=== PATIENT | male | born 1950 | race Caucasian/White ===

== ENCOUNTER 2016-11-26 06:02 | Inpatient (IN) ==
[2016-11-20 15:36] LABS: Appearance,Urine CLEAR; Bacteria,Urine 0 /hpf (0); Bilirubin,Urine NEG (NEG); Color,Urine YELLOW; Glucose,Urine (UA) NEGATIVE (NEG); Leukocyte Esterase,Urine NEG /uL (NEG); Mucus,Urine FEW /hpf (0); Nitrate,Urine NEG (NEG); Protein,Urine 100 mg/dL (NEG); Specific Gravity,Urine 1.017 (1.000-1.035); Urine Blood NEG mg/dL (<0.03); Urine RBC < 1 /hpf (0-1); Urine Squamous Epithelial Cell 0 /hpf (0-4); Urine WBC < 1 /hpf (0-4); Urobilinogen,Urine NEG (NEG)
[2016-11-20 17:31] LABS: Basophils # (Auto) 0.1 K/mcL (0.0-0.3); Basophils % (Auto) 0.6 % (0.0-2.0); Eosinophils # (Auto) 0.3 K/mcL (0.0-0.7); Eosinophils % (Auto) 3.3 % (0.0-7.0); Granulocytes % (Auto) 61.6 % (38.0-78.0); Lymphocytes # (Auto) 2.3 K/mcL (1.5-4.8); Lymphocytes % (Auto) 26.7 % (15.5-49.0); Mean Cell Volume 89.6 fL (80.0-100.0); Mean Corpuscular HGB Conc 32.8 g/dL (31.0-36.0); Mean Corpuscular Hemoglobin 29.4 pg (26.0-34.0); Monocytes # (Auto) 0.7 K/mcL (0.1-0.9); Monocytes % (Auto) 7.8 % (1.0-9.0); Platelet Count 275 K/mcL (140-440); RBC 5.34 M/mcL (4.50-5.90); Red Cell Distribution Width 13.9 % (11.5-14.5)
[2016-11-20 18:06] LABS: Blood Urea Nitrogen 21 mg/dl (8-23)
[~2016-11-26 06:02] MED LIST: ACETAMINOPHEN 500 MG TABLET PO SCH; CELECOXIB 200 MG CAPSULE PO SCH; KETOROLAC 30 MG, ROPIVACAINE HCL/PF 49.5 ML, EPINEPHrine 0.5 MG, 0.9 % SODIUM CHLORIDE ... IJ ONE; PREGABALIN 150 MG CAPSULE PO SCH; ceFAZolin 1 GM VIAL IV SCH; oxyCODONE 10 MG TAB.ER.12H PO SCH
[2016-11-26] MEDS ORDERED: LIDOCAINE HCL/PF 100 MG/5 ML SYRINGE IV ONE (08:20)
[2016-11-26] MEDS ORDERED: ROPIVACAINE HCL/PF 30 ML VIAL IJ ONE (08:20)
[2016-11-26] MEDS ORDERED: DEXAMETHASONE 10 MG/ML VIAL IV ONE (08:20)
[2016-11-26] MEDS ORDERED: TRANEXAMIC ACID 1,000 MG/10 ML VIAL IV ONE (08:20)
[2016-11-26] MEDS ORDERED: PROPOFOL 200 MG/20 ML VIAL IV ONE (08:20)
[2016-11-26] MEDS ORDERED: ONDANSETRON 4 MG/2 ML VIAL IV ONE (08:20)
[2016-11-26] MEDS ORDERED: MIDAZOLAM 5 MG/5 ML VIAL IV ONE (08:20)
[2016-11-26] MEDS ORDERED: fentaNYL 100 MCG/2 ML VIAL IV PRN (09:08)
[2016-11-26] MEDS ORDERED: MEPERIDINE 25 MG/ML SYRINGE IV PRN (09:08)
[2016-11-26] MEDS ORDERED: METHOCARBAMOL 1,000 MG/10 ML VIAL IV PRN (09:08)
[2016-11-26] MEDS ORDERED: FLUMAZENIL 0.1 MG/ML ML IV PRN (09:08)
[2016-11-26] MEDS ORDERED: PROMETHAZINE 25 MG/ML VIAL IV PRN (09:08)
[2016-11-26] MEDS ORDERED: NALOXONE HCL 0.4 MG/ML VIAL IV PRN (09:08)
[2016-11-26] MEDS ORDERED: HYDROmorphone 2 MG/ML SYRINGE IV PRN ×2 (09:08→11:12)
[2016-11-26] MEDS ORDERED: LACTATED RINGERS 250 ML IV PRN (09:08)
[2016-11-26] MEDS ORDERED: ONDANSETRON 4 MG/2 ML VIAL IV PRN ×2 (09:08→09:41)
[2016-11-26] MEDS ORDERED: BENZOCAINE/MENTHOL 1 LOZENGE PO PRN ×2 (09:08→09:41)
[2016-11-26] MEDS ORDERED: IPRATROPIUM/ALBUTEROL 3 ML AMPUL.NEB NEB PRN (09:08)
[2016-11-26] MEDS ORDERED: diphenhydrAMINE 50 MG/ML VIAL IV PRN (09:08)
[2016-11-26] MEDS ORDERED: LACTATED RINGERS 1,000 ML IV SCH (09:15)
[2016-11-26] MEDS ORDERED: ACETAMINOPHEN 325 MG TABLET PO PRN (09:41)
[2016-11-26] MEDS ORDERED: FLEETS ADULT ENEMA PR PRN (09:41)
[2016-11-26] MEDS ORDERED: MAGNESIUM HYDROXIDE 30 ML ORAL.SUSP PO PRN (09:41)
[2016-11-26] MEDS ORDERED: TRANEXAMIC ACID 1,000 MG/10 ML VIAL IV SCH (09:41)
[2016-11-26] MEDS ORDERED: POLYETHYLENE GLYCOL 3350 17 GM PACKET PO PRN (09:41)
[2016-11-26] MEDS ORDERED: BISACODYL 10 MG SUPP.RECT PR PRN (09:41)
[2016-11-26] MEDS ORDERED: NAPROXEN 500 MG TABLET PO PRN (09:44)
[2016-11-26] MEDS ORDERED: GENTAMICIN SULFATE 800 MG/20 ML VIAL IR ONE (10:10)
--- NOTE | 2016-11-26 10:56 | XRay Report ---
HISTORY: Reason for Exam:Post-Op Total Knee FINDINGS: There is a well positioned total knee prosthesis. No fracture or dislocation are present. There are calcified plaques in the distal superficial femoral artery. IMPRESSION: Well-positioned knee prosthesis Interpreted and Authenticated by: Benito Chavez 11/26/16
--- NOTE | 2016-11-26 11:12 | Operative Note ---
DATE OF OPERATION: 11/26/2016 PREOPERATIVE DIAGNOSIS: Left knee degenerative arthritis with varus deformity. POSTOPERATIVE DIAGNOSIS: Left knee degenerative arthritis with varus deformity. PROCEDURE: Left total knee arthroplasty. SURGEON: Manohar Cueva MD. WAXER TENDER: Roman Yepez PA-C. ANESTHESIA: General LMA anesthesia. COMPLICATIONS: None. IMPLANTS PLACED: A size 6 femur, size 6 tibial baseplate, cemented both. These were cruciate-retained design with a 9 mm poly. A 33 mm patellar button was placed. DESCRIPTION OF PROCEDURE: The patient was brought to the operating room and put to sleep with general LMA anesthesia. Once asleep, the patient had the left leg sterilely prepped and draped in the usual sterile fashion. Once this was done and the operative site confirmed, preop antibiotics given. Tranexamic acid was confirmed. Once this was done, we then made a midline incision, covering the skin with Ioban. A mid vastus approach was performed finding severe arthritis throughout the joint, both patellofemoral, medial and lateral with severe arthritis intact ACL and PCL. At this point, released the remnants of the ACL, removed the remnants of the anterior meniscus. We then placed intramedullary guide holes into the femur and tibia. We made our distal femoral cut at 9 mm because of his flexion contracture. We then made our anterior and posterior chamfer cuts after sizing the femur to a size 6. The tibia was then prepared. We then cut this to a depth of 9 mm below the least involved compartment which was laterally. We then irrigated thoroughly and removed osteophytes posteriorly. Once this was done, we then trialed the size 6 femur and size 6 tibial baseplate, 9 poly. This seemed to fit very nicely, balanced nicely with 1 mm play bilaterally. We then measured the patella. It measured 27 mm thickness. This was cut to approximately 18. We placed a 33 mm patellar button, and this was drilled into place. We trialed the components. Everything fit very nicely, both flexion and extension. We did a small release of the medial collateral ligament to perfectly balance the knee. We then cemented into place a size 6 femur and size 6 tibial baseplate. A 9 mm poly was inserted and a 33 mm patellar button. Excess cement was removed. We kept the knee at 45 degrees until drying of the cement was complete. We then deflated the tourniquet and controlled bleeding with the Bovie. We closed the capsule after a second inspection. We did use a CarboJet to prepare the bone. We did use a cement gun for the cement technique, all of which seemed to work very well. We then closed the capsule with #2 FiberWire and oversewed with a double-armed #1 Maxon with an interlocking stitch. The patient tolerated this well. We closed the skin with 2-0 Vicryl and adhesive closure. The patient tolerated this well. NAYA:[email or web address] Job ID: [id number] Doc ID: [id number] Manohar Cueva MD
[2016-11-26] MEDS: KETOROLAC 15 MG/ML VIAL IV SCH ×3 (13:23→23:26)
[2016-11-26] MEDS: 0.45 % SODIUM CHLORIDE 1,000 ML IV SCH ×3 (13:44→22:00)
[2016-11-26] MEDS: 0.9 % SODIUM CHLORIDE 10 ML SYRINGE IV SCH ×2 (13:52→21:50)
[2016-11-26] MEDS: HYDROcodone/APAP 10/325MG TABLET PO PRN ×3 (13:53→23:26)
[2016-11-26] MEDS ORDERED: DEXTROSE 50% 50 ML VIAL IV PRN (15:36)
[2016-11-26] MEDS: ceFAZolin 1 GM VIAL IV SCH ×2 (16:51→23:26)
[2016-11-26] MEDS: INSULIN LISPRO 1 UNIT/0.01 ML UNIT SQ SCH ×2 (17:17→21:02)
[2016-11-26] MEDS: metFORMIN 500 MG TABLET PO SCH (17:18)
[2016-11-26] MEDS: glipiZIDE 5 MG TABLET PO SCH (17:21)
[2016-11-26] MEDS ORDERED: TEMAZEPAM 15 MG CAPSULE PO PRN (21:00)
[2016-11-26] MEDS: SENNOSIDES 1 TABLET PO SCH (21:01)
[2016-11-26] MEDS: DOCUSATE SODIUM 100 MG CAPSULE PO SCH (21:01)
[2016-11-26] MEDS: ASPIRIN 325 MG ENTERIC COATED TABLET PO SCH (21:01)
[2016-11-27] MEDS: 0.45 % SODIUM CHLORIDE 1,000 ML IV SCH ×3 (01:40→20:26)
[2016-11-27] MEDS: HYDROcodone/APAP 10/325MG TABLET PO PRN ×5 (05:39→21:44)
[2016-11-27] MEDS: KETOROLAC 15 MG/ML VIAL IV SCH ×3 (05:40→17:26)
[2016-11-27] MEDS: 0.9 % SODIUM CHLORIDE 10 ML SYRINGE IV SCH ×3 (05:41→21:57)
[2016-11-27] MEDS: INSULIN LISPRO 1 UNIT/0.01 ML UNIT SQ SCH ×4 (07:02→21:44)
--- NOTE | 2016-11-27 07:26 | Orthopedic Progress Note ---
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 Chief Complaint: [Pt is stable this morning on post operative day 1 without any significant concerns or complaints. Patients vital signs have remained stable. Patients dressing is dry and exhibits a grossly intact neurovascular and neuromotor exam. Patients 10 point ROS is otherwise negative. ] Objective Vital signs: Vital Signs Temp Pulse Pulse Pulse Resp BP Pulse Ox 11/27/16 07:12 97.4 F L 83 16 144/71 95 11/27/16 05:38 16 94 11/27/16 04:00 97.4 F L 92 H 24 133/54 91 11/26/16 23:52 97.8 F 96 H 24 136/82 91 11/26/16 22:14 95 11/26/16 22:13 92 H 95 11/26/16 21:30 92 11/26/16 19:06 98.2 F 98 H 24 128/70 96 11/26/16 17:33 92 11/26/16 17:00 92 11/26/16 15:56 97.8 F 97 H 16 120/71 94 11/26/16 14:50 97.3 F L 60 15 140/87 98 11/26/16 14:25 97.6 F 99 H 16 133/76 94 11/26/16 13:41 90 11/26/16 13:25 91 H 16 155/78 91 11/26/16 12:55 89 16 160/84 94 11/26/16 12:25 90 16 144/75 94 11/26/16 12:10 89 16 175/73 96 11/26/16 11:55 97.5 F L 80 16 149/75 97 11/26/16 11:40 97.0 F L 82 14 151/80 91 11/26/16 11:16 97 F L 80 17 153/66 91 11/26/16 11:15 92 H 18 93 11/26/16 11:01 78 90 16 163/64 90 11/26/16 10:46 72 14 134/73 96 11/26/16 10:31 71 14 126/58 93 11/26/16 10:26 77 14 122/64 93 11/26/16 10:21 70 15 137/69 93 11/26/16 10:16 73 19 122/62 96 11/26/16 10:11 76 11 L 129/88 92 11/26/16 10:06 70 14 124/59 90 11/26/16 10:01 97.2 F L 77 13 121/58 92 Intake and Output 11/26/16 11/27/16 11/27/16 21:59 05:59 13:59 Intake Total 2180 / 2180 100 / 100 Output Total 325 / 325 Balance 2179 / 2179 -225 / -225 Intake: IV 1000 / 1000 Sodium Chloride 0.45% 1, 1000 / 1000 000 ml @ 125 mls/hr IV . Q8H PIOTR Rx#:[id number] Oral 1180 / 1180 100 / 100 Output: Void Amount 325 / 325 # of times incontinent of 1 / 1 urine Other: Meal Dinner Percent of Meal Consumed 100% Feeding Ability Independent # Voids 1 Weight 327 lb Intake & Output: Intake & Output 11/26/16 11/27/16 11/27/16 21:59 05:59 13:59 Intake Total 2180 / 2180 100 / 100 Output Total 325 / 325 Balance 2179 / 2179 -225 / -225 Weight 327 lb Intake: IV 1000 / 1000 Sodium Chloride 0.45% 1, 1000 / 1000 000 ml @ 125 mls/hr IV . Q8H PIOTR Rx#:[id number] Oral 1180 / 1180 100 / 100 Output: Void Amount 325 / 325 # of times incontinent of 1 / 1 urine Other: Meal Dinner Percent of Meal Consumed 100% Feeding Ability Independent # Voids 1 Incision: Yes healing Incision clean and dry: Yes Dressing: Yes clean, Yes dry Weight bearing status: full Neurological exam IM: Yes motor sensory intact, Yes neurovascular intact Extremities exam IM: Yes Foot pink and warm, Yes neurovascular intact - Labs CBC & BMP: 11/27/16 04:15 11/20/16 14:45 Labs: 11/27/16 11/20/16 04:15 14:45 Hgb 15.7 Hct 40.4 L 47.9 Assessment and Plan (1) Hx of total knee arthroplasty Patient has been educated regarding wound care and dressings, follow up recommendations, and medication use. We will f/u with the patient within 2-3 weeks for wound check. Status: Acute
--- NOTE | 2016-11-27 07:28 | Discharge Summary ---
Ortho Discharge - TKA - Patient Instructions Diet: Regular Diet Activity: activity as tolerated, weight bearing as tolerated Total Knee Protocol: For Total Knee: Start ROM MINESH with stationary bike or rocking chair. Work on gaining full extension of knee. Posterior dislocation precautions provided. Hip abductor strengthening and gait training instructions provided. Apply Cryocuff as instructed. Dressing Care: May shower in 2 days - Problem Maintenance (1) Hx of total knee arthroplasty Status: Acute - Follow Up Plan Follow Up Appointments: Roman Yepez PA-C [Physician Fishing Accessories Maker] - 12/13/16 1:50 pm Disposition: Home, Self-Care Prognosis: Good Rehab Potential: Good I certify that the patient requires SNF services: No Overall status at discharge: patient is progressing back to baseline - Orders For Discharge Prescriptions: Aspirin [Ecotrin] 325 mg PO BID #60 tab.ec Docusate Sodium [Colace] 100 mg PO BID #60 capsule HYDROcodone/APAP 10/325MG [[place] 10/325Mg] 1 - 2 tab PO Q4HP PRN #75 tablet PRN Reason: Pain
[2016-11-27] MEDS: HYDROCHLOROTHIAZIDE 12.5 MG CAPSULE PO SCH (08:29)
[2016-11-27] MEDS: LISINOPRIL 20 MG TABLET PO SCH (08:29)
[2016-11-27] MEDS: glipiZIDE 5 MG TABLET PO SCH ×2 (08:29→16:53)
[2016-11-27] MEDS: DOCUSATE SODIUM 100 MG CAPSULE PO SCH ×2 (08:29→20:20)
[2016-11-27] MEDS: amLODIPine 10 MG TABLET PO SCH (08:29)
[2016-11-27] MEDS: SPIRONOLACTONE 25 MG TABLET PO SCH (08:29)
[2016-11-27] MEDS: ASPIRIN 325 MG ENTERIC COATED TABLET PO SCH ×2 (08:29→20:20)
[2016-11-27] MEDS: ATORVASTATIN 40 MG TABLET PO SCH (08:29)
[2016-11-27] MEDS: metFORMIN 500 MG TABLET PO SCH ×2 (08:29→16:53)
[2016-11-27] MEDS: MULTIVIT,THER IRON,CA,FA & MIN 1 TABLET PO SCH (08:29)
[2016-11-27] MEDS: SENNOSIDES 1 TABLET PO SCH (20:20)
[2016-11-28] MEDS: HYDROcodone/APAP 10/325MG TABLET PO PRN ×6 (01:24→19:13)
[2016-11-28] MEDS: 0.45 % SODIUM CHLORIDE 1,000 ML IV SCH ×3 (02:15→16:23)
[2016-11-28] MEDS: KETOROLAC 15 MG/ML VIAL IV SCH ×2 (05:08)
[2016-11-28] MEDS: 0.9 % SODIUM CHLORIDE 10 ML SYRINGE IV SCH ×3 (05:17→21:57)
[2016-11-28] MEDS: INSULIN LISPRO 1 UNIT/0.01 ML UNIT SQ SCH ×4 (07:02→21:55)
--- NOTE | 2016-11-28 07:04 | Orthopedic Progress Note ---
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 Chief Complaint: [minimal pain and he used his mask last hs and sat at 96 doing well] Objective Vital signs: Vital Signs Temp Pulse Pulse Resp BP BP Pulse Ox 11/28/16 03:46 97.6 F 75 20 119/64 97 11/27/16 23:41 97.6 F 75 20 128/72 96 11/27/16 23:23 76 96 11/27/16 20:00 97.7 F 72 20 95/54 93 11/27/16 16:00 98.2 F 76 18 114/61 93 11/27/16 11:00 97.9 F 81 18 110/63 96 11/27/16 08:00 93 11/27/16 07:12 97.4 F L 83 16 144/71 95 Intake and Output 11/27/16 11/28/16 11/28/16 21:59 05:59 13:59 Intake Total 1200 / 1200 100 / 100 Balance 1200 / 1200 100 / 100 Intake: Oral 1200 / 1200 100 / 100 Other: Meal Lunch Percent of Meal Consumed 100% Weight 327 lb 8 oz Intake & Output: Intake & Output 11/27/16 11/28/16 11/28/16 21:59 05:59 13:59 Intake Total 1200 / 1200 100 / 100 Balance 1200 / 1200 100 / 100 Weight 327 lb 8 oz Intake: Oral 1200 / 1200 100 / 100 Other: Meal Lunch Percent of Meal Consumed 100% Incision: Yes healing Incision clean and dry: Yes Dressing: Yes clean Weight bearing status: full Neurological exam IM: Yes altered, Yes oriented X3, Yes neurovascular intact Extremities exam IM: Yes normal inspection, Yes Foot pink and warm, Yes neurovascular intact (doing well plan dc to snf in am) - Labs CBC & BMP: 11/27/16 04:15 11/20/16 14:45 Labs: 11/27/16 11/20/16 04:15 14:45 Hgb 15.7 Hct 40.4 L 47.9
[2016-11-28] MEDS: ASPIRIN 325 MG ENTERIC COATED TABLET PO SCH ×2 (08:44→21:54)
[2016-11-28] MEDS: SPIRONOLACTONE 25 MG TABLET PO SCH (08:44)
[2016-11-28] MEDS: amLODIPine 10 MG TABLET PO SCH (08:45)
[2016-11-28] MEDS: glipiZIDE 5 MG TABLET PO SCH ×2 (08:45→16:29)
[2016-11-28] MEDS: metFORMIN 500 MG TABLET PO SCH ×2 (08:45→16:29)
[2016-11-28] MEDS: HYDROCHLOROTHIAZIDE 12.5 MG CAPSULE PO SCH (08:45)
[2016-11-28] MEDS: DOCUSATE SODIUM 100 MG CAPSULE PO SCH ×2 (08:45→21:55)
[2016-11-28] MEDS: MULTIVIT,THER IRON,CA,FA & MIN 1 TABLET PO SCH (08:45)
[2016-11-28] MEDS: LISINOPRIL 20 MG TABLET PO SCH (08:45)
[2016-11-28] MEDS: ATORVASTATIN 40 MG TABLET PO SCH (10:02)
[2016-11-28] MEDS: SENNOSIDES 1 TABLET PO SCH (21:55)
[2016-11-29] MEDS: HYDROcodone/APAP 10/325MG TABLET PO PRN ×3 (01:04→08:40)
[2016-11-29] MEDS: 0.45 % SODIUM CHLORIDE 1,000 ML IV SCH (02:06)
[2016-11-29] MEDS: 0.9 % SODIUM CHLORIDE 10 ML SYRINGE IV SCH (04:51)
[2016-11-29] MEDS: INSULIN LISPRO 1 UNIT/0.01 ML UNIT SQ SCH (07:29)
[2016-11-29] MEDS: SPIRONOLACTONE 25 MG TABLET PO SCH (08:39)
[2016-11-29] MEDS: ATORVASTATIN 40 MG TABLET PO SCH (08:39)
[2016-11-29] MEDS: LISINOPRIL 20 MG TABLET PO SCH (08:40)
[2016-11-29] MEDS: glipiZIDE 5 MG TABLET PO SCH (08:40)
[2016-11-29] MEDS: metFORMIN 500 MG TABLET PO SCH (08:40)
[2016-11-29] MEDS: ASPIRIN 325 MG ENTERIC COATED TABLET PO SCH (08:40)
[2016-11-29] MEDS: MULTIVIT,THER IRON,CA,FA & MIN 1 TABLET PO SCH (08:40)
[2016-11-29] MEDS: DOCUSATE SODIUM 100 MG CAPSULE PO SCH (08:40)
[2016-11-29] MEDS: HYDROCHLOROTHIAZIDE 12.5 MG CAPSULE PO SCH (08:40)
[2016-11-29] MEDS: amLODIPine 10 MG TABLET PO SCH (08:40)
--- NOTE | 2016-12-05 09:00 | Discharge Summary ---
DATE OF ADMISSION: 11/26/2016 DATE OF DISCHARGE: 11/29/2016 ADMITTING DIAGNOSIS: Left knee degenerative osteoarthritis. DISCHARGE DIAGNOSIS: Left knee degenerative osteoarthritis with left total knee arthroplasty. DISCHARGE CONDITION: Stable. CONSULTATIONS: None. PROCEDURE PERFORMED: __ was completed on the date of admission. The procedure went without complications and there was minimal blood loss. Following the procedure the patient was taken to recovery room in stable condition. When deemed stable, was taken to the hospital floor for further observation and recovery. HISTORY OF PRESENT ILLNESS: This pleasant patient has exhausted conservative care measures in the office that has included trials with anti-inflammatories, pain medications, injections and physical therapy. The patient has discussed non-operative and operative options with Dr. Cueva at length. Due to the exhausting conservative measures the patient desired to proceed forth with operative care. HOSPITAL COURSE: __ DISCHARGE PHYSICAL EXAMINATION: VITAL SIGNS: Stable as above. GENERAL: Patient is awake, alert and oriented x3. HEENT: Head was normocephalic. NECK: Supple, no adenopathy or thyromegaly. CHEST: CTA, no wheezing, rhonchi or rales. HEART: NSR, no gallops, rubs or murmurs. MUSCULOSKELETAL: Lower extremities revealed grossly intact motor exam. NEUROLOGIC: Deep tendon response and light touch, motor, neurosensory exam was stable. SKIN: The incision was intact and the dressing had been changed to the Acticoat dressing. There were no abnormal skin markings, lesions, erythema, rashes or other skin breakdown. DISCHARGE INSTRUCTIONS/MEDICATIONS: The patient did require custodial facility as he did not meet the discharge criteria to home. The patient received our standard written discharge instruction sheet. These instructions included information regarding weightbearing status, activity level, diet, wound care, physical therapy instructions, bathing restrictions, shower recommendations, follow-up guidelines, driving restrictions and monitoring the wound for signs of infection that could include but not necessarily to fevers above 101.5, sweats, chills, redness, increased pain or drainage. Should any of these occur the patient was educated to contact our office at once. MEDICATIONS: The patient was restarted on normal primary care medications. Patient was also prescribed Craig 10/325 mg with instructions for 1 to 2 tabs by mouth every 4 to 6 hours as needed for pain, quantity 75 with 2 refills. The patient will be placed on 325 mg aspirin, 1 a day for 30 days post surgery. [facility] will monitor the patient's PT/INR. FOLLOWUP: Patient will follow up at [facility] 2 weeks from surgery for a postop wound check and staple removal. They will be able to certain follow up sooner with any problems or concerns. BAP:[email or web address] Job ID: [id number] Doc ID: [id number] Roman Yepez PA-C
== END 2016-11-29 10:20 | disposition home or self-care (01) | DRG 470 ==
LOC: MEDSUR 06:02
PROVIDERS: ADMIT Orthopaedic Surgery; ATTEND Orthopaedic Surgery

== ENCOUNTER 2023-12-17 14:14 | Inpatient (IN) ==
[2023-12-17 15:45] LABS: Basophils # (Auto) 0.06 K/mcL (0.00-0.30); Basophils % (Auto) 0.7 % (0.0-2.0); Eosinophils # (Auto) 0.27 K/mcL (0.00-0.70); Eosinophils % (Auto) 3.1 % (0.0-7.0); Hematocrit 32.4 % (40.1-51.0); Hemoglobin 10.3 g/dL (13.7-17.5); Lymphocytes # (Auto) 1.33 K/mcL (1.50-4.80); Lymphocytes % (Auto) 15.5 % (15.5-49.0); Mean Cell Volume 94.5 fL (80.0-100.0); Mean Corpuscular HGB Conc 31.8 g/dL (31.0-36.0); Mean Platelet Volume 9.3 fL (8.8-12.5); Monocytes # (Auto) 0.83 K/mcL (0.10-0.90); Monocytes % (Auto) 9.7 % (1.0-12.0); Neutrophils % (Auto) 70.9 % (38.0-78.0); Platelet Count 287 K/mcL (140-440); RBC 3.43 M/mcL (4.63-6.08); Red Cell Distribution Width 14.1 % (11.5-14.5); WBC 8.6 K/mcL (4.5-11.0)
[2023-12-17 15:53] LABS: Erythrocyte Sedimentation Rate 51 mm/hr (0-20)
[2023-12-17 16:11] LABS: Blood Urea Nitrogen 52 mg/dL (8-23); Calcium 9.2 mg/dL (8.6-10.4); Carbon Dioxide 25 mmol/L (22-30); Chloride 101 mmol/L (96-108); Glomerular Filtration Rate 26; Glucose 69 mg/dL (70-105)
[2023-12-17] MEDS: HYDROmorphone 1 MG/ML SYRINGE IV ONE (18:01)
[2023-12-17] MEDS: PIPERACILLIN SODIUM/TAZOBACTAM 3.375 GM in DEXTROSE 5% IN WATER 50 ML IV ONE (18:07)
[2023-12-17] MEDS: VANCOMYCIN PER PHARMACY IV ONE ×2 (18:07→20:40)
[2023-12-17] MEDS: VANCOMYCIN 1,500 MG in 0.9 % SODIUM CHLORIDE 500 ML IV SCH (18:37)
[2023-12-17] MEDS ORDERED: IPRATROPIUM/ALBUTEROL 3 ML AMPUL.NEB NEB PRN (20:06)
[2023-12-17] MEDS ORDERED: DEXTROSE 50% 50 ML VIAL IV PRN (20:06)
[2023-12-17] MEDS ORDERED: DEXTROSE 31 GM ORAL.SUSP PO PRN (20:06)
[2023-12-17] MEDS ORDERED: ACETAMINOPHEN 325 MG TABLET PO PRN (20:06)
[2023-12-17] MEDS: SENNOSIDES 1 TABLET PO SCH (22:01)
[2023-12-17] MEDS: INSULIN LISPRO 1 UNIT/0.01 ML UNIT SQ SCH (22:01)
[2023-12-17] MEDS: traZODone HCL 50 MG TABLET PO PRN (22:01)
[2023-12-17] MEDS: DOCUSATE SODIUM 100 MG CAPSULE PO SCH (22:01)
[2023-12-17] MEDS: 0.9 % SODIUM CHLORIDE 10 ML SYRINGE IV SCH (22:02)
[2023-12-17] MEDS: PIPERACILLIN SODIUM/TAZOBACTAM 3.375 GM in DEXTROSE 5% IN WATER 100 ML IV SCH (22:03)
[2023-12-18] MEDS: oxyCODONE IR 5 MG TABLET PO PRN (05:03)
[2023-12-18 06:16] LABS: Basophils # (Auto) 0.05 K/mcL (0.00-0.30); Basophils % (Auto) 0.6 % (0.0-2.0); Eosinophils # (Auto) 0.26 K/mcL (0.00-0.70); Eosinophils % (Auto) 3.4 % (0.0-7.0); Hematocrit 31.6 % (40.1-51.0); Lymphocytes # (Auto) 1.14 K/mcL (1.50-4.80); Lymphocytes % (Auto) 14.8 % (15.5-49.0); Mean Cell Volume 94.9 fL (80.0-100.0); Mean Corpuscular HGB Conc 31.6 g/dL (31.0-36.0); Mean Platelet Volume 9.2 fL (8.8-12.5); Monocytes # (Auto) 0.82 K/mcL (0.10-0.90); Monocytes % (Auto) 10.6 % (1.0-12.0); Neutrophils % (Auto) 70.5 % (38.0-78.0); Platelet Count 255 K/mcL (140-440); RBC 3.33 M/mcL (4.63-6.08); Red Cell Distribution Width 14.1 % (11.5-14.5); WBC 7.7 K/mcL (4.5-11.0)
[2023-12-18 06:35] LABS: ALT/SGPT 8 U/L (<40); AST/SGOT 25 U/L (<40); Albumin 3.3 gm/dL (3.2-5.2); Alkaline Phosphatase 79 U/L (39-117); Bilirubin,Total 0.3 mg/dL (0.1-1.0); Blood Urea Nitrogen 48 mg/dL (8-23); Calcium 8.9 mg/dL (8.6-10.4); Carbon Dioxide 24 mmol/L (22-30); Chloride 103 mmol/L (96-108); Globulin 3.4 gm/dL (2.2-3.7); Glomerular Filtration Rate 26; Glucose 85 mg/dL (70-105)
[2023-12-18 06:57] LABS: Estimated Average Glucose(eAG) 128 mg/dL; Hemoglobin A1C 6.1 % Hgb (4.0-6.0)
[2023-12-18 07:33] LABS: Vancomycin,Random 11.5 ug/mL
[2023-12-18] MEDS ORDERED: VANCOMYCIN PER PHARMACY IV SCH (08:00)
[2023-12-18] MEDS ORDERED: IBUPROFEN 600 MG TABLET PO PRN (11:25)
[2023-12-18] MEDS: VANCOMYCIN 1,500 MG in 0.9 % SODIUM CHLORIDE 500 ML IV ONE (14:07)
[2023-12-18] MEDS: DICLOFENAC SODIUM 1% TOPICAL GEL TOPICAL SCH (14:19)
[2023-12-18] MEDS: FUROSEMIDE 80 MG TABLET PO SCH (16:00)
[2023-12-18] MEDS: glipiZIDE 5 MG TABLET PO SCH (17:11)
[2023-12-18] MEDS: ATORVASTATIN 40 MG TABLET PO SCH (21:46)
[2023-12-18] MEDS: hydrALAZINE 25 MG TABLET PO SCH (21:46)
[2023-12-19 07:23] LABS: Basophils # (Auto) 0.07 K/mcL (0.00-0.30); Basophils % (Auto) 0.9 % (0.0-2.0); Eosinophils # (Auto) 0.36 K/mcL (0.00-0.70); Eosinophils % (Auto) 4.7 % (0.0-7.0); Hematocrit 33.4 % (40.1-51.0); Hemoglobin 10.5 g/dL (13.7-17.5); Lymphocytes # (Auto) 1.37 K/mcL (1.50-4.80); Lymphocytes % (Auto) 17.9 % (15.5-49.0); Mean Corpuscular HGB Conc 31.4 g/dL (31.0-36.0); Mean Platelet Volume 8.9 fL (8.8-12.5); Monocytes # (Auto) 0.67 K/mcL (0.10-0.90); Monocytes % (Auto) 8.7 % (1.0-12.0); Neutrophils % (Auto) 67.7 % (38.0-78.0); Platelet Count 292 K/mcL (140-440); RBC 3.48 M/mcL (4.63-6.08); Red Cell Distribution Width 14.1 % (11.5-14.5); WBC 7.7 K/mcL (4.5-11.0)
[2023-12-19 07:48] LABS: ALT/SGPT 9 U/L (<40); AST/SGOT 24 U/L (<40); Albumin 3.5 gm/dL (3.2-5.2); Alkaline Phosphatase 80 U/L (39-117); Bilirubin,Total 0.3 mg/dL (0.1-1.0); Blood Urea Nitrogen 43 mg/dL (8-23); Calcium 9.3 mg/dL (8.6-10.4); Carbon Dioxide 28 mmol/L (22-30); Chloride 101 mmol/L (96-108); Globulin 3.6 gm/dL (2.2-3.7); Glomerular Filtration Rate 24; Glucose 82 mg/dL (70-105)
[2023-12-19 08:22] LABS: Vancomycin,Random 17.9 ug/mL
[2023-12-19] MEDS: MELOXICAM 7.5 MG TABLET PO SCH (09:14)
[2023-12-19] MEDS: ASPIRIN 81 MG TAB.CHEW PO SCH (09:14)
[2023-12-19] MEDS: DILTIAZEM 180 MG CAP.XL.24H PO SCH (09:14)
[2023-12-19] MEDS: OLMESARTAN MEDOXOMIL 20 MG TABLET PO SCH (09:14)
[2023-12-19] MEDS: CLOPIDOGREL 75 MG TABLET PO SCH (09:14)
[2023-12-19] MEDS: DULoxetine 30 MG CAPSULE PO SCH (09:14)
[2023-12-19] MEDS: Empagliflozin [Jardiance] 25 mg tablet PO SCH (09:15)
[2023-12-19] MEDS: SPIRONOLACTONE 25 MG TABLET PO SCH (09:20)
[2023-12-19] MEDS: LIDOCAINE 4% TOP PATCH TOPICAL SCH (10:27)
[2023-12-19] MEDS: VANCOMYCIN 1,000 MG in 0.9 % SODIUM CHLORIDE 250 ML IV ONE (10:27)
[2023-12-20 05:54] LABS: Basophils # (Auto) 0.05 K/mcL (0.00-0.30); Basophils % (Auto) 0.7 % (0.0-2.0); Eosinophils # (Auto) 0.34 K/mcL (0.00-0.70); Eosinophils % (Auto) 4.5 % (0.0-7.0); Hematocrit 34.3 % (40.1-51.0); Hemoglobin 10.9 g/dL (13.7-17.5); Lymphocytes # (Auto) 1.37 K/mcL (1.50-4.80); Mean Corpuscular HGB Conc 31.8 g/dL (31.0-36.0); Monocytes # (Auto) 0.68 K/mcL (0.10-0.90); Monocytes % (Auto) 8.9 % (1.0-12.0); Neutrophils % (Auto) 67.8 % (38.0-78.0); Platelet Count 311 K/mcL (140-440); RBC 3.65 M/mcL (4.63-6.08); WBC 7.6 K/mcL (4.5-11.0)
[2023-12-20 06:12] LABS: ALT/SGPT 10 U/L (<40); AST/SGOT 26 U/L (<40); Albumin 3.8 gm/dL (3.2-5.2); Alkaline Phosphatase 81 U/L (39-117); Bilirubin,Total 0.3 mg/dL (0.1-1.0); Blood Urea Nitrogen 46 mg/dL (8-23); Calcium 9.4 mg/dL (8.6-10.4); Carbon Dioxide 27 mmol/L (22-30); Chloride 98 mmol/L (96-108); Globulin 3.9 gm/dL (2.2-3.7); Glomerular Filtration Rate 23; Glucose 65 mg/dL (70-105)
[2023-12-20 08:17] LABS: Vancomycin,Random 20.2 ug/mL
[2023-12-20] MEDS: ONDANSETRON 4 MG/2 ML VIAL IV PRN (10:12)
[2023-12-21 06:43] LABS: ALT/SGPT 14 U/L (<40); AST/SGOT 27 U/L (<40); Albumin 3.7 gm/dL (3.2-5.2); Alkaline Phosphatase 73 U/L (39-117); Bilirubin,Total 0.3 mg/dL (0.1-1.0); Blood Urea Nitrogen 52 mg/dL (8-23); Calcium 9.1 mg/dL (8.6-10.4); Carbon Dioxide 27 mmol/L (22-30); Chloride 97 mmol/L (96-108); Globulin 3.6 gm/dL (2.2-3.7); Glomerular Filtration Rate 20; Glucose 54 mg/dL (70-105)
[2023-12-21 07:38] LABS: Basophils # (Auto) 0.04 K/mcL (0.00-0.30); Basophils % (Auto) 0.5 % (0.0-2.0); Eosinophils # (Auto) 0.35 K/mcL (0.00-0.70); Eosinophils % (Auto) 4.7 % (0.0-7.0); Hematocrit 32.7 % (40.1-51.0); Hemoglobin 10.5 g/dL (13.7-17.5); Lymphocytes # (Auto) 1.25 K/mcL (1.50-4.80); Lymphocytes % (Auto) 16.9 % (15.5-49.0); Mean Cell Volume 94.2 fL (80.0-100.0); Mean Corpuscular HGB Conc 32.1 g/dL (31.0-36.0); Mean Platelet Volume 9.2 fL (8.8-12.5); Monocytes # (Auto) 0.77 K/mcL (0.10-0.90); Monocytes % (Auto) 10.4 % (1.0-12.0); Neutrophils % (Auto) 67.4 % (38.0-78.0); Platelet Count 300 K/mcL (140-440); RBC 3.47 M/mcL (4.63-6.08); Red Cell Distribution Width 14.2 % (11.5-14.5); WBC 7.4 K/mcL (4.5-11.0)
[2023-12-21] MEDS ORDERED: VANCOMYCIN 1,000 MG in 0.9 % SODIUM CHLORIDE 250 ML IV ONE (09:00)
[2023-12-21] MEDS ORDERED: VANCOMYCIN 750 MG in 0.9 % SODIUM CHLORIDE 250 ML IV ONE (11:00)
[2023-12-21] MEDS: VANCOMYCIN 750 MG in 0.9 % SODIUM CHLORIDE 250 ML IV ONE (13:32)
[2023-12-22 05:49] LABS: Basophils # (Auto) 0.06 K/mcL (0.00-0.30); Basophils % (Auto) 0.9 % (0.0-2.0); Eosinophils # (Auto) 0.32 K/mcL (0.00-0.70); Eosinophils % (Auto) 4.6 % (0.0-7.0); Hematocrit 33.8 % (40.1-51.0); Hemoglobin 10.7 g/dL (13.7-17.5); Lymphocytes # (Auto) 1.14 K/mcL (1.50-4.80); Lymphocytes % (Auto) 16.5 % (15.5-49.0); Mean Cell Volume 95.5 fL (80.0-100.0); Mean Corpuscular HGB Conc 31.7 g/dL (31.0-36.0); Monocytes # (Auto) 0.73 K/mcL (0.10-0.90); Monocytes % (Auto) 10.5 % (1.0-12.0); Neutrophils % (Auto) 67.4 % (38.0-78.0); Platelet Count 276 K/mcL (140-440); RBC 3.54 M/mcL (4.63-6.08); Red Cell Distribution Width 14.1 % (11.5-14.5); WBC 6.9 K/mcL (4.5-11.0)
[2023-12-22 06:32] LABS: ALT/SGPT 10 U/L (<40); AST/SGOT 27 U/L (<40); Albumin 3.8 gm/dL (3.2-5.2); Albumin/Globulin Ratio 1.1 (1.0-2.3); Alkaline Phosphatase 69 U/L (39-117); Bilirubin,Total 0.3 mg/dL (0.1-1.0); Blood Urea Nitrogen 60 mg/dL (8-23); Calcium 8.9 mg/dL (8.6-10.4); Carbon Dioxide 26 mmol/L (22-30); Chloride 96 mmol/L (96-108); Globulin 3.6 gm/dL (2.2-3.7); Glomerular Filtration Rate 18; Glucose 47 mg/dL (70-105)
[2023-12-22 06:56] LABS: Vancomycin,Random 18.7 ug/mL
[2023-12-22] MEDS ORDERED: metFORMIN 500 MG TABLET PO SCH (08:00)
[2023-12-22] MEDS ORDERED: glipiZIDE 5 MG TABLET PO SCH (08:00)
[2023-12-22] MEDS: glipiZIDE 5 MG TABLET PO SCH (09:35)
[2023-12-22] MEDS: LINEZOLID 600 MG/300 ML BAG IV SCH (10:56)
[2023-12-22] MEDS ORDERED: LABETALOL HCL 20 MG/4 ML VIAL IV PRN (13:29)
[2023-12-22] MEDS ORDERED: hydrALAZINE 20 MG/ML VIAL IV PRN (13:29)
[2023-12-22] MEDS: LACTATED RINGERS 1,000 ML IV SCH (15:05)
[2023-12-22] MEDS: morphine 4 MG/ML VIAL IV PRN (20:31)
[2023-12-23 12:47] LABS: Basophils # (Auto) 0.06 K/mcL (0.00-0.30); Eosinophils % (Auto) 4.8 % (0.0-7.0); Hematocrit 32.4 % (40.1-51.0); Hemoglobin 10.2 g/dL (13.7-17.5); Lymphocytes # (Auto) 1.15 K/mcL (1.50-4.80); Lymphocytes % (Auto) 18.3 % (15.5-49.0); Mean Cell Volume 95.6 fL (80.0-100.0); Mean Corpuscular HGB Conc 31.5 g/dL (31.0-36.0); Mean Platelet Volume 9.2 fL (8.8-12.5); Monocytes # (Auto) 0.59 K/mcL (0.10-0.90); Monocytes % (Auto) 9.4 % (1.0-12.0); Neutrophils % (Auto) 66.5 % (38.0-78.0); Platelet Count 265 K/mcL (140-440); RBC 3.39 M/mcL (4.63-6.08); Red Cell Distribution Width 14.3 % (11.5-14.5); WBC 6.3 K/mcL (4.5-11.0)
[2023-12-23 13:47] LABS: ALT/SGPT 12 U/L (<40); AST/SGOT 29 U/L (<40); Albumin 3.6 gm/dL (3.2-5.2); Albumin/Globulin Ratio 1.1 (1.0-2.3); Alkaline Phosphatase 66 U/L (39-117); Bilirubin,Total 0.2 mg/dL (0.1-1.0); Blood Urea Nitrogen 64 mg/dL (8-23); Calcium 8.7 mg/dL (8.6-10.4); Carbon Dioxide 28 mmol/L (22-30); Chloride 95 mmol/L (96-108); Globulin 3.4 gm/dL (2.2-3.7); Glomerular Filtration Rate 17; Glucose 118 mg/dL (70-105)
[2023-12-23] MEDS: LACTATED RINGERS 1,000 ML IV SCH (17:17)
[2023-12-24] MEDS: LORazepam 0.5 MG TABLET PO PRN (03:23)
[2023-12-24 07:11] LABS: ALT/SGPT 14 U/L (<40); AST/SGOT 31 U/L (<40); Albumin 3.7 gm/dL (3.2-5.2); Albumin/Globulin Ratio 1.1 (1.0-2.3); Alkaline Phosphatase 66 U/L (39-117); Bilirubin,Total 0.3 mg/dL (0.1-1.0); Blood Urea Nitrogen 61 mg/dL (8-23); Calcium 8.9 mg/dL (8.6-10.4); Carbon Dioxide 23 mmol/L (22-30); Chloride 100 mmol/L (96-108); Globulin 3.4 gm/dL (2.2-3.7); Glomerular Filtration Rate 19; Glucose 66 mg/dL (70-105)
[2023-12-24] MEDS: guaiFENesin 600 MG TAB.SR.12H PO SCH (09:59)
[2023-12-24] MEDS: MELATONIN 3 MG TABLET PO PRN (20:22)
[2023-12-24] MEDS: LINEZOLID 600 MG TABLET PO SCH (20:23)
[2023-12-25 05:47] LABS: Basophils # (Auto) 0.07 K/mcL (0.00-0.30); Basophils % (Auto) 1.1 % (0.0-2.0); Eosinophils # (Auto) 0.41 K/mcL (0.00-0.70); Eosinophils % (Auto) 6.6 % (0.0-7.0); Hemoglobin 10.3 g/dL (13.7-17.5); Lymphocytes # (Auto) 1.11 K/mcL (1.50-4.80); Lymphocytes % (Auto) 17.9 % (15.5-49.0); Mean Cell Volume 95.2 fL (80.0-100.0); Mean Corpuscular HGB Conc 32.2 g/dL (31.0-36.0); Mean Platelet Volume 9.5 fL (8.8-12.5); Monocytes # (Auto) 0.69 K/mcL (0.10-0.90); Monocytes % (Auto) 11.1 % (1.0-12.0); Neutrophils % (Auto) 63.3 % (38.0-78.0); Platelet Count 267 K/mcL (140-440); RBC 3.36 M/mcL (4.63-6.08); Red Cell Distribution Width 14.3 % (11.5-14.5); WBC 6.2 K/mcL (4.5-11.0)
[2023-12-25 07:42] LABS: ALT/SGPT 14 U/L (<40); AST/SGOT 32 U/L (<40); Albumin 3.7 gm/dL (3.2-5.2); Albumin/Globulin Ratio 1.2 (1.0-2.3); Alkaline Phosphatase 64 U/L (39-117); Bilirubin,Total 0.3 mg/dL (0.1-1.0); Blood Urea Nitrogen 54 mg/dL (8-23); Calcium 8.9 mg/dL (8.6-10.4); Carbon Dioxide 26 mmol/L (22-30); Chloride 102 mmol/L (96-108); Globulin 3.1 gm/dL (2.2-3.7); Glomerular Filtration Rate 21; Glucose 84 mg/dL (70-105)
[2023-12-26 08:38] LABS: Basophils # (Auto) 0.08 K/mcL (0.00-0.30); Basophils % (Auto) 1.1 % (0.0-2.0); Eosinophils # (Auto) 0.43 K/mcL (0.00-0.70); Eosinophils % (Auto) 6.1 % (0.0-7.0); Hematocrit 33.2 % (40.1-51.0); Hemoglobin 10.3 g/dL (13.7-17.5); Lymphocytes # (Auto) 1.46 K/mcL (1.50-4.80); Lymphocytes % (Auto) 20.7 % (15.5-49.0); Mean Cell Volume 97.9 fL (80.0-100.0); Mean Platelet Volume 9.5 fL (8.8-12.5); Monocytes # (Auto) 0.66 K/mcL (0.10-0.90); Monocytes % (Auto) 9.4 % (1.0-12.0); Neutrophils % (Auto) 62.6 % (38.0-78.0); Platelet Count 274 K/mcL (140-440); RBC 3.39 M/mcL (4.63-6.08); Red Cell Distribution Width 14.3 % (11.5-14.5)
[2023-12-26 08:49] LABS: ALT/SGPT 14 U/L (<40); AST/SGOT 33 U/L (<40); Albumin 3.9 gm/dL (3.2-5.2); Albumin/Globulin Ratio 1.1 (1.0-2.3); Alkaline Phosphatase 62 U/L (39-117); Bilirubin,Total 0.3 mg/dL (0.1-1.0); Blood Urea Nitrogen 44 mg/dL (8-23); Calcium 9.2 mg/dL (8.6-10.4); Carbon Dioxide 23 mmol/L (22-30); Chloride 103 mmol/L (96-108); Globulin 3.4 gm/dL (2.2-3.7); Glomerular Filtration Rate 24; Glucose 82 mg/dL (70-105)
[2023-12-27 05:56] LABS: Blood Urea Nitrogen 42 mg/dL (8-23); Calcium 8.9 mg/dL (8.6-10.4); Carbon Dioxide 24 mmol/L (22-30); Chloride 101 mmol/L (96-108); Glomerular Filtration Rate 23; Glucose 75 mg/dL (70-105)
[2023-12-27 06:23] LABS: Basophils # (Auto) 0.05 K/mcL (0.00-0.30); Basophils % (Auto) 0.7 % (0.0-2.0); Eosinophils # (Auto) 0.38 K/mcL (0.00-0.70); Eosinophils % (Auto) 5.6 % (0.0-7.0); Hematocrit 30.4 % (40.1-51.0); Hemoglobin 9.6 g/dL (13.7-17.5); Lymphocytes % (Auto) 17.8 % (15.5-49.0); Mean Cell Volume 97.1 fL (80.0-100.0); Mean Corpuscular HGB Conc 31.6 g/dL (31.0-36.0); Mean Platelet Volume 9.7 fL (8.8-12.5); Monocytes # (Auto) 0.68 K/mcL (0.10-0.90); Monocytes % (Auto) 10.1 % (1.0-12.0); Neutrophils % (Auto) 65.8 % (38.0-78.0); Platelet Count 242 K/mcL (140-440); RBC 3.13 M/mcL (4.63-6.08); Red Cell Distribution Width 14.4 % (11.5-14.5); WBC 6.8 K/mcL (4.5-11.0)
[2023-12-27] MEDS: MIDAZOLAM 2 MG/2 ML VIAL IV ONE (10:35)
[2023-12-27] MEDS ORDERED: PIPERACILLIN SODIUM/TAZOBACTAM 3.375 GM in 0.9 % SODIUM CHLORIDE 100 ML IV SCH (14:00)
== END 2023-12-27 15:05 | DRG 638 ==
LOC: ED 14:14 → MEDSUR 19:58
PROVIDERS: ADMIT Internal Medicine; ATTEND Internal Medicine

== ENCOUNTER 2023-12-31 22:28 | Inpatient (IN) ==
[2023-12-31] MEDS: DEXTROSE 50% 50 ML SYRINGE IV ONE ×2 (22:37→23:12)
[2023-12-31] MEDS: DEXTROSE 5%-1/2NS 1,000 ML IV SCH (23:29)
[2023-12-31 23:32] LABS: Basophils # (Auto) 0.04 K/mcL (0.00-0.30); Basophils % (Auto) 0.5 % (0.0-2.0); Eosinophils # (Auto) 0.26 K/mcL (0.00-0.70); Eosinophils % (Auto) 3.4 % (0.0-7.0); Hematocrit 31.6 % (40.1-51.0); Hemoglobin 9.8 g/dL (13.7-17.5); Lymphocytes # (Auto) 0.99 K/mcL (1.50-4.80); Lymphocytes % (Auto) 12.9 % (15.5-49.0); Mean Cell Volume 98.4 fL (80.0-100.0); Mean Platelet Volume 9.7 fL (8.8-12.5); Monocytes # (Auto) 0.64 K/mcL (0.10-0.90); Monocytes % (Auto) 8.4 % (1.0-12.0); Neutrophils % (Auto) 74.8 % (38.0-78.0); Platelet Count 197 K/mcL (140-440); RBC 3.21 M/mcL (4.63-6.08); Red Cell Distribution Width 14.9 % (11.5-14.5); WBC 7.7 K/mcL (4.5-11.0)
[2023-12-31 23:33] LABS: ABG Methemoglobin 0.3 % (0.4-1.5); Total Hemoglobin 11.5 gm/Dl (13.5-16.5); VBG Base Excess -1 (-2-3); VBG HCO3 23.2 mmol/L (24.0-28.0); VBG Oxygen Saturation 91.6 % (40.0-70.0); VBG PCO2 35.2 mmHg (41.0-51.0); VBG PH 7.44 U (7.32-7.42); VBG PO2 89.5 mmHg (25.0-40.0); VBG Total CO2 24.2 mmol/L (25.0-29.0)
[2023-12-31 23:47] LABS: Creatine Kinase 222 U/L (24-195); Creatine Kinase MB 4.6 ng/mL (<6.7)
[2023-12-31] MEDS: KETOROLAC 15 MG/ML VIAL IV ONE (23:53)
[2023-12-31 23:58] LABS: ALT/SGPT 19 U/L (<40); AST/SGOT 30 U/L (<40); Albumin 3.5 gm/dL (3.2-5.2); Albumin/Globulin Ratio 1.1 (1.0-2.3); Alkaline Phosphatase 61 U/L (39-117); Bilirubin,Total < 0.2 mg/dL (0.1-1.0); Blood Urea Nitrogen 44 mg/dL (8-23); Calcium 8.9 mg/dL (8.6-10.4); Carbon Dioxide 22 mmol/L (22-30); Chloride 103 mmol/L (96-108); Globulin 3.1 gm/dL (2.2-3.7); Glomerular Filtration Rate 18; Glucose 189 mg/dL (70-105)
[2024-01-01 00:08] LABS: Prothrombin Time 13.9 sec (11.9-14.5)
[2024-01-01] MEDS: GLUCAGON,HUMAN RECOMBINANT 1 MG VIAL IV ONE (02:26)
[2024-01-01] MEDS: DEXTROSE 50% 50 ML SYRINGE IV ONE (02:37)
[2024-01-01] MEDS: ONDANSETRON 4 MG/2 ML VIAL IV ONE (02:37)
[2024-01-01] MEDS ORDERED: SENNOSIDES 1 TABLET PO PRN (04:28)
[2024-01-01] MEDS: DEXTROSE 50% 50 ML SYRINGE IV SCH (04:39)
[2024-01-01] MEDS: DEXTROSE 5%-LR 1,000 ML IV SCH ×3 (05:28→15:51)
[2024-01-01] MEDS: 0.9 % SODIUM CHLORIDE 10 ML SYRINGE IV SCH (05:29)
[2024-01-01 05:52] LABS: Basophils # (Auto) 0.06 K/mcL (0.00-0.30); Basophils % (Auto) 0.6 % (0.0-2.0); Eosinophils # (Auto) 0.36 K/mcL (0.00-0.70); Eosinophils % (Auto) 3.6 % (0.0-7.0); Hematocrit 34.6 % (40.1-51.0); Hemoglobin 10.6 g/dL (13.7-17.5); Lymphocytes # (Auto) 1.26 K/mcL (1.50-4.80); Lymphocytes % (Auto) 12.7 % (15.5-49.0); Mean Cell Volume 99.1 fL (80.0-100.0); Mean Corpuscular HGB Conc 30.6 g/dL (31.0-36.0); Mean Platelet Volume 9.4 fL (8.8-12.5); Monocytes # (Auto) 0.76 K/mcL (0.10-0.90); Monocytes % (Auto) 7.6 % (1.0-12.0); Neutrophils % (Auto) 75.5 % (38.0-78.0); Platelet Count 208 K/mcL (140-440); RBC 3.49 M/mcL (4.63-6.08); Red Cell Distribution Width 14.8 % (11.5-14.5); WBC 9.9 K/mcL (4.5-11.0)
[2024-01-01 06:12] LABS: ALT/SGPT 20 U/L (<40); AST/SGOT 31 U/L (<40); Albumin 3.7 gm/dL (3.2-5.2); Albumin/Globulin Ratio 1.1 (1.0-2.3); Alkaline Phosphatase 64 U/L (39-117); Bilirubin,Total 0.2 mg/dL (0.1-1.0); Blood Urea Nitrogen 45 mg/dL (8-23); Calcium 8.9 mg/dL (8.6-10.4); Carbon Dioxide 24 mmol/L (22-30); Chloride 104 mmol/L (96-108); Globulin 3.3 gm/dL (2.2-3.7); Glomerular Filtration Rate 19; Glucose 59 mg/dL (70-105)
[2024-01-01 06:27] LABS: Appearance,Urine Clear (Clear); Bilirubin,Urine Negative (Negative); Color,Urine Yellow; Culture Indicated,Urine No; Glucose,Urine (UA) 250 mg/dL (Negative); Ketones,Urine Negative (Negative); Leukocyte Esterase,Urine Negative /uL (Negative); Nitrate,Urine Negative (Negative); Protein,Urine 100 mg/dL (Negative); Specific Gravity,Urine 1.015 (1.000-1.035); Urine Blood Negative ery/mcL (Negative); Urine RBC 0 /hpf (0-3); Urine Squamous Epithelial Cell 0 /hpf (0-4); Urine WBC 0 /hpf (0-4); Urobilinogen,Urine Normal
[2024-01-01] MEDS: GLUCAGON,HUMAN RECOMBINANT 1 MG VIAL IV PRN (07:12)
[2024-01-01] MEDS: ASPIRIN 81 MG TAB.CHEW PO SCH (09:16)
[2024-01-01] MEDS: DILTIAZEM 180 MG CAP.XL.24H PO SCH (09:16)
[2024-01-01] MEDS: OLMESARTAN MEDOXOMIL 20 MG TABLET PO SCH (09:16)
[2024-01-01] MEDS: CLOPIDOGREL 75 MG TABLET PO SCH (09:16)
[2024-01-01] MEDS: TAMSULOSIN 0.4 MG CAPSULE PO SCH (09:16)
[2024-01-01] MEDS: HEPARIN 5,000 UNIT/ML VIAL SQ SCH (09:16)
[2024-01-01] MEDS: LINEZOLID 600 MG TABLET PO SCH (09:16)
[2024-01-01] MEDS: hydrALAZINE 25 MG TABLET PO SCH (09:16)
[2024-01-01] MEDS: LIDOCAINE 4% TOP PATCH TOPICAL SCH (09:27)
[2024-01-01] MEDS: DEXTROSE 50% 50 ML SYRINGE IV PRN (11:31)
[2024-01-01] MEDS ORDERED: LIDOCAINE 4% TOP PATCH TOPICAL PRN (13:53)
[2024-01-01] MEDS: LOPERAMIDE 2 MG CAPSULE PO PRN (15:52)
[2024-01-01] MEDS: ATORVASTATIN 40 MG TABLET PO SCH (20:08)
[2024-01-02 06:56] LABS: ALT/SGPT 16 U/L (<40); AST/SGOT 31 U/L (<40); Albumin 3.5 gm/dL (3.2-5.2); Albumin/Globulin Ratio 1.1 (1.0-2.3); Alkaline Phosphatase 64 U/L (39-117); Bilirubin,Direct < 0.2 mg/dL (0-0.3); Bilirubin,Total 0.3 mg/dL (0.1-1.0); Blood Urea Nitrogen 45 mg/dL (8-23); Calcium 8.8 mg/dL (8.6-10.4); Carbon Dioxide 22 mmol/L (22-30); Chloride 101 mmol/L (96-108); Globulin 3.1 gm/dL (2.2-3.7); Glomerular Filtration Rate 20; Glucose 111 mg/dL (70-105); Lactate Dehydrogenase 235 U/L (135-225); Phosphorous 3.8 mg/dL (2.5-4.5); Triglycerides 110 mg/dL (<150); Uric Acid 8.1 mg/dL (2.5-8.0)
[2024-01-02] MEDS: HYDROcodone/APAP 5/325MG TABLET PO PRN (09:29)
[2024-01-02] MEDS: ONDANSETRON 4 MG/2 ML VIAL IV PRN (11:23)
[2024-01-02] MEDS ORDERED: hydrOXYzine 25 MG TABLET PO PRN (13:37)
[2024-01-02] MEDS: hydrOXYzine 25 MG TABLET PO ONE (13:51)
[2024-01-02] MEDS: diphenhydrAMINE 25 MG CAPSULE PO PRN (18:37)
[2024-01-02] MEDS: hydrOXYzine 25 MG TABLET PO PRN (18:37)
[2024-01-02] MEDS: MELATONIN 3 MG TABLET PO SCH (18:37)
[2024-01-02] MEDS ORDERED: HALOPERIDOL LACTATE 5 MG/ML VIAL IV PRN (18:51)
[2024-01-02] MEDS: TAMSULOSIN 0.4 MG CAPSULE PO SCH (22:20)
[2024-01-02] MEDS: OLANZapine 10 MG VIAL IM PRN (22:35)
[2024-01-03] MEDS ORDERED: DEXTROSE 50% 50 ML VIAL IV PRN (07:30)
[2024-01-03] MEDS ORDERED: DEXTROSE 31 GM ORAL.SUSP PO PRN (07:30)
[2024-01-03] MEDS: INSULIN LISPRO 1 UNIT/0.01 ML UNIT SQ SCH (08:12)
[2024-01-03 08:53] LABS: ALT/SGPT 18 U/L (<40); AST/SGOT 30 U/L (<40); Albumin 3.5 gm/dL (3.2-5.2); Albumin/Globulin Ratio 1.1 (1.0-2.3); Alkaline Phosphatase 70 U/L (39-117); Bilirubin,Direct < 0.2 mg/dL (0-0.3); Bilirubin,Total 0.4 mg/dL (0.1-1.0); Blood Urea Nitrogen 43 mg/dL (8-23); Carbon Dioxide 27 mmol/L (22-30); Chloride 103 mmol/L (96-108); Globulin 3.2 gm/dL (2.2-3.7); Glomerular Filtration Rate 19; Glucose 99 mg/dL (70-105); Lactate Dehydrogenase 195 U/L (135-225); Phosphorous 3.5 mg/dL (2.5-4.5); Triglycerides 81 mg/dL (<150); Uric Acid 8.6 mg/dL (2.5-8.0)
[2024-01-03] MEDS: OLANZapine 5 MG TABLET PO SCH (21:43)
[2024-01-04 09:17] LABS: ALT/SGPT 19 U/L (<40); AST/SGOT 30 U/L (<40); Albumin 3.7 gm/dL (3.2-5.2); Alkaline Phosphatase 81 U/L (39-117); Bilirubin,Direct < 0.2 mg/dL (0-0.3); Bilirubin,Total 0.4 mg/dL (0.1-1.0); Blood Urea Nitrogen 39 mg/dL (8-23); Calcium 9.3 mg/dL (8.6-10.4); Carbon Dioxide 24 mmol/L (22-30); Chloride 102 mmol/L (96-108); Globulin 3.7 gm/dL (2.2-3.7); Glomerular Filtration Rate 20; Glucose 148 mg/dL (70-105); Lactate Dehydrogenase 236 U/L (135-225); Phosphorous 3.2 mg/dL (2.5-4.5); Triglycerides 73 mg/dL (<150); Uric Acid 8.6 mg/dL (2.5-8.0)
[2024-01-05 08:35] LABS: ALT/SGPT 13 U/L (<40); AST/SGOT 26 U/L (<40); Albumin 3.5 gm/dL (3.2-5.2); Alkaline Phosphatase 72 U/L (39-117); Bilirubin,Direct < 0.2 mg/dL (0-0.3); Bilirubin,Total 0.3 mg/dL (0.1-1.0); Blood Urea Nitrogen 44 mg/dL (8-23); Carbon Dioxide 23 mmol/L (22-30); Chloride 101 mmol/L (96-108); Globulin 3.5 gm/dL (2.2-3.7); Glomerular Filtration Rate 20; Glucose 136 mg/dL (70-105); Lactate Dehydrogenase 200 U/L (135-225); Triglycerides 59 mg/dL (<150); Uric Acid 8.6 mg/dL (2.5-8.0)
[2024-01-05] MEDS: HEPARIN 5,000 UNIT/ML VIAL SQ SCH (09:31)
[2024-01-06] MEDS ORDERED: LABETALOL HCL 20 MG/4 ML VIAL IV PRN (07:36)
[2024-01-06] MEDS: DOCUSATE SODIUM 100 MG CAPSULE PO ONE (11:43)
[2024-01-06] MEDS: POLYETHYLENE GLYCOL 3350 17 GM PACKET PO PRN (11:45)
[2024-01-06] MEDS: DOCUSATE SODIUM 100 MG CAPSULE PO SCH (19:59)
[2024-01-06] MEDS: traZODone HCL 50 MG TABLET PO ONE (22:41)
[2024-01-07 08:38] LABS: Blood Urea Nitrogen 44 mg/dL (8-23); Carbon Dioxide 24 mmol/L (22-30); Chloride 105 mmol/L (96-108); Glomerular Filtration Rate 18; Glucose 105 mg/dL (70-105)
[2024-01-07] MEDS: OLANZapine 5 MG TABLET PO SCH (20:14)
[2024-01-08 06:39] LABS: Blood Urea Nitrogen 45 mg/dL (8-23); Calcium 8.8 mg/dL (8.6-10.4); Carbon Dioxide 25 mmol/L (22-30); Chloride 103 mmol/L (96-108); Glomerular Filtration Rate 19; Glucose 118 mg/dL (70-105)
== END 2024-01-08 13:03 | DRG 638 ==
LOC: ED 22:28 → ICU 01-01 04:26 → MEDSUR 01-02 15:57 → ICU 01-05 19:05 → UNDODISIN 01-06 15:10
PROVIDERS: ADMIT Student in an Organized Health Care Education/Training Program; ATTEND Internal Medicine

== ENCOUNTER 2024-06-21 18:15 | Inpatient (IN) ==
[2024-06-21] MEDS ORDERED: IOPAMIDOL 100 ML BOTTLE IV ONE (18:16)
[2024-06-21] MEDS: ACETAMINOPHEN 1,000 MG/100 ML BAG IV ONE (19:00)
[2024-06-21] MEDS: ONDANSETRON 4 MG/2 ML VIAL IV ONE (19:00)
[2024-06-21] MEDS: ONDANSETRON 4 MG/2 ML VIAL ONE (19:00)
[2024-06-21 19:24] LABS: Basophils # (Auto) 0.03 K/mcL (0.00-0.30); Basophils % (Auto) 0.1 % (0.0-2.0); Eosinophils # (Auto) 0.29 K/mcL (0.00-0.70); Hematocrit 31.7 % (40.1-51.0); Hemoglobin 9.7 g/dL (13.7-17.5); Lymphocytes # (Auto) 0.96 K/mcL (1.50-4.80); Lymphocytes % (Auto) 3.3 % (15.5-49.0); Mean Cell Volume 87.1 fL (80.0-100.0); Mean Corpuscular HGB Conc 30.6 g/dL (31.0-36.0); Mean Platelet Volume 9.9 fL (8.8-12.5); Monocytes # (Auto) 0.76 K/mcL (0.10-0.90); Monocytes % (Auto) 2.6 % (1.0-12.0); Neutrophils % (Auto) 92.7 % (38.0-78.0); Platelet Count 305 K/mcL (140-440); RBC 3.64 M/mcL (4.63-6.08); Red Cell Distribution Width 16.9 % (11.5-14.5)
[2024-06-21 19:42] LABS: ALT/SGPT 5 U/L (<40); AST/SGOT 18 U/L (<40); Albumin 3.4 gm/dL (3.2-5.2); Albumin/Globulin Ratio 0.8 (1.0-2.3); Alkaline Phosphatase 123 U/L (39-117); Bilirubin,Total 0.5 mg/dL (0.1-1.0); Blood Urea Nitrogen 39 mg/dL (8-23); Calcium 9.7 mg/dL (8.6-10.4); Carbon Dioxide 22 mmol/L (22-30); Chloride 99 mmol/L (96-108); Globulin 4.4 gm/dL (2.2-3.7); Glomerular Filtration Rate 24; Glucose 152 mg/dL (70-105); Potassium 4.2 mmol/L (3.3-5.1); Sodium 136 mmol/L (133-145)
[2024-06-21 19:49] LABS: INR 1.2 (0.9-1.1)
[2024-06-21] MEDS: PIPERACILLIN SODIUM/TAZOBACTAM 3.375 GM in DEXTROSE 5% IN WATER 50 ML IV ONE (19:52)
[2024-06-21] MEDS: 0.9 % SODIUM CHLORIDE 500 ML IV ONE (20:34)
[2024-06-21] MEDS: 0.9 % SODIUM CHLORIDE 1,000 ML IV ONE ×2 (21:15→21:16)
[2024-06-21] MEDS: NOREPINEPHRINE BITARTRATE 16 MG in 0.9 % SODIUM CHLORIDE 234 ML IV ONE (22:17)
[2024-06-21] MEDS: NOREPINEPHRINE BITARTRATE 16 MG in 0.9 % SODIUM CHLORIDE 234 ML IV SCH (22:18)
[2024-06-21] MEDS: NOREPINEPHRINE 250 ML IV ONE (22:18)
[2024-06-21] MEDS: NOREPINEPHRINE BITARTRATE 8 MG in 0.9 % SODIUM CHLORIDE 242 ML IV SCH (22:18)
[2024-06-21] MEDS: 0.9 % SODIUM CHLORIDE 250 ML IV SCH (22:20)
[2024-06-21] MEDS: 0.9 % SODIUM CHLORIDE 0 ML ONE (22:21)
[2024-06-22 05:45] LABS: Appearance,Urine HAZY (Clear); Bilirubin,Urine Negative (Negative); Calcium Oxalate Crystals,Urine FEW /hpf; Color,Urine YELLOW; Glucose,Urine (UA) Negative (Negative); Ketones,Urine Negative (Negative); Leukocyte Esterase,Urine 25 /uL (Negative); Mucus,Urine FEW /hpf; Nitrate,Urine Negative (Negative); Protein,Urine >=500 mg/dL (Negative); Urine Amorphous Crystals FEW /hpf; Urine Blood Negative (Negative); Urine Granular Cast 1 /lph (0-0); Urine Hyaline Cast 8 /lph (0-2); Urine RBC 1 /hpf (0-3); Urine Squamous Epithelial Cell 4 /hpf (0-4); Urine Transitional Epi Cells < 1 /hpf (0-2); Urine WBC 33 /hpf (0-4); Urobilinogen,Urine Negative
[2024-06-22] MEDS: PIPERACILLIN SODIUM/TAZOBACTAM 3.375 GM in DEXTROSE 5% IN WATER 50 ML IV ONE (07:24)
[2024-06-22 08:09] LABS: Basophils # (Auto) 0.03 K/mcL (0.00-0.30); Basophils % (Auto) 0.1 % (0.0-2.0); Eosinophils # (Auto) 0.21 K/mcL (0.00-0.70); Eosinophils % (Auto) 0.5 % (0.0-7.0); Hematocrit 27.7 % (40.1-51.0); Hemoglobin 8.4 g/dL (13.7-17.5); Lymphocytes % (Auto) 4.9 % (15.5-49.0); Mean Cell Volume 87.4 fL (80.0-100.0); Mean Corpuscular HGB Conc 30.3 g/dL (31.0-36.0); Mean Platelet Volume 9.6 fL (8.8-12.5); Monocytes # (Auto) 3.03 K/mcL (0.10-0.90); Monocytes % (Auto) 6.7 % (1.0-12.0); Neutrophils % (Auto) 85.9 % (38.0-78.0); Platelet Count 256 K/mcL (140-440); RBC 3.17 M/mcL (4.63-6.08); WBC 45.1 K/mcL (4.5-11.0)
[2024-06-22 08:19] LABS: ALT/SGPT < 5 U/L (<40); AST/SGOT 16 U/L (<40); Albumin 2.9 gm/dL (3.2-5.2); Albumin/Globulin Ratio 0.8 (1.0-2.3); Alkaline Phosphatase 95 U/L (39-117); Bilirubin,Total 0.3 mg/dL (0.1-1.0); Blood Urea Nitrogen 37 mg/dL (8-23); Calcium 8.6 mg/dL (8.6-10.4); Carbon Dioxide 23 mmol/L (22-30); Chloride 103 mmol/L (96-108); Globulin 3.6 gm/dL (2.2-3.7); Glomerular Filtration Rate 26; Glucose 151 mg/dL (70-105); Potassium 3.9 mmol/L (3.3-5.1); Sodium 137 mmol/L (133-145)
[2024-06-22] MEDS: VANCOMYCIN 1,500 MG in 0.9 % SODIUM CHLORIDE 500 ML IV ONE (08:49)
[2024-06-22] MEDS ORDERED: IPRATROPIUM/ALBUTEROL 3 ML AMPUL.NEB NEB PRN (11:01)
[2024-06-22] MEDS ORDERED: DEXTROSE 31 GM ORAL.SUSP PO PRN (11:01)
[2024-06-22] MEDS ORDERED: DEXTROSE 50% 50 ML VIAL IV PRN (11:01)
[2024-06-22] MEDS ORDERED: VANCOMYCIN PER PHARMACY IV SCH (11:45)
[2024-06-22 12:21] LABS: Estimated Average Glucose(eAG) 131 mg/dL; Hemoglobin A1C 6.2 % Hgb (4.0-6.0)
[2024-06-22] MEDS: morphine 4 MG/ML VIAL IV PRN (12:26)
[2024-06-22] MEDS: 0.9 % SODIUM CHLORIDE 1,000 ML IV SCH (12:26)
[2024-06-22] MEDS: VANCOMYCIN PER PHARMACY IV ONE (12:33)
[2024-06-22] MEDS: PIPERACILLIN SODIUM/TAZOBACTAM 3.375 GM in DEXTROSE 5% IN WATER 100 ML IV SCH (13:27)
[2024-06-22] MEDS: INSULIN LISPRO 1 UNIT/0.01 ML UNIT SQ SCH (13:51)
[2024-06-22] MEDS: 0.9 % SODIUM CHLORIDE 10 ML SYRINGE IV SCH (15:55)
[2024-06-22] MEDS ORDERED: GADOBENATE DIMEGLUMINE 20 ML/VIAL IV ONE (18:14)
[2024-06-22] MEDS: LACTATED RINGERS 1,000 ML IV SCH (19:53)
[2024-06-22] MEDS: DOCUSATE SODIUM 100 MG CAPSULE PO SCH (20:10)
[2024-06-22] MEDS: HEPARIN 5,000 UNIT/ML VIAL SQ SCH (20:10)
[2024-06-23 06:30] LABS: Vancomycin,Random 8.6 ug/mL
[2024-06-23 06:45] LABS: ALT/SGPT 6 U/L (<40); AST/SGOT 18 U/L (<40); Albumin 2.6 gm/dL (3.2-5.2); Albumin/Globulin Ratio 0.8 (1.0-2.3); Alkaline Phosphatase 81 U/L (39-117); Bilirubin,Direct < 0.2 mg/dL (0-0.3); Bilirubin,Total < 0.2 mg/dL (0.1-1.0); Blood Urea Nitrogen 37 mg/dL (8-23); Calcium 8.9 mg/dL (8.6-10.4); Carbon Dioxide 23 mmol/L (22-30); Chloride 103 mmol/L (96-108); Globulin 3.3 gm/dL (2.2-3.7); Glomerular Filtration Rate 26; Glucose 95 mg/dL (70-105); Lactate Dehydrogenase 144 U/L (135-225); Phosphorous 3.3 mg/dL (2.5-4.5); Potassium 4.1 mmol/L (3.3-5.1); Sodium 136 mmol/L (133-145); Triglycerides 75 mg/dL (<150); Uric Acid 6.2 mg/dL (2.5-8.0)
[2024-06-23 06:53] LABS: Basophils # (Auto) 0.08 K/mcL (0.00-0.30); Basophils % (Auto) 0.3 % (0.0-2.0); Eosinophils # (Auto) 1.21 K/mcL (0.00-0.70); Hematocrit 23.8 % (40.1-51.0); Hemoglobin 7.3 g/dL (13.7-17.5); Lymphocytes # (Auto) 2.12 K/mcL (1.50-4.80); Mean Cell Volume 87.5 fL (80.0-100.0); Mean Corpuscular HGB Conc 30.7 g/dL (31.0-36.0); Mean Platelet Volume 9.9 fL (8.8-12.5); Monocytes # (Auto) 1.61 K/mcL (0.10-0.90); Monocytes % (Auto) 5.3 % (1.0-12.0); Neutrophils % (Auto) 83.1 % (38.0-78.0); Platelet Count 238 K/mcL (140-440); RBC 2.72 M/mcL (4.63-6.08); Red Cell Distribution Width 16.9 % (11.5-14.5); WBC 30.3 K/mcL (4.5-11.0)
[2024-06-23] MEDS: PANTOPRAZOLE 40 MG TABLET PO SCH (07:10)
[2024-06-23] MEDS ORDERED: HYDROCORTISONE CRM 1% TUBE 30GM TOPICAL PRN (07:27)
[2024-06-23] MEDS: PIPERACILLIN SODIUM/TAZOBACTAM 3.375 GM in DEXTROSE 5% IN WATER 50 ML IV SCH (07:32)
[2024-06-23] MEDS ORDERED: NOREPINEPHRINE BITARTRATE 8 MG in 0.9 % SODIUM CHLORIDE 242 ML IV PRN (08:19)
[2024-06-23] MEDS: LACTOBACILLUS 1 CAPSULE PO SCH (11:09)
[2024-06-23] MEDS: VANCOMYCIN 1,000 MG in 0.9 % SODIUM CHLORIDE 250 ML IV ONE (11:10)
[2024-06-23] MEDS: Dorzolamide-Timolol 22.3-6.8 mg/mL drops OU SCH (11:28)
[2024-06-23 13:16] LABS: Hematocrit 26.1 % (40.1-51.0); Hemoglobin 7.8 g/dL (13.7-17.5)
[2024-06-23] MEDS: TAMSULOSIN 0.4 MG CAPSULE PO SCH (20:32)
[2024-06-23] MEDS: ATORVASTATIN 40 MG TABLET PO SCH (20:32)
[2024-06-23] MEDS: LATANOPROST OPHTH DROPS 2.5ML BOTTLE OU SCH (20:44)
[2024-06-24 06:48] LABS: ALT/SGPT 5 U/L (<40); AST/SGOT 16 U/L (<40); Albumin 2.9 gm/dL (3.2-5.2); Albumin/Globulin Ratio 0.9 (1.0-2.3); Alkaline Phosphatase 85 U/L (39-117); Bilirubin,Direct < 0.2 mg/dL (0-0.3); Bilirubin,Total 0.2 mg/dL (0.1-1.0); Blood Urea Nitrogen 32 mg/dL (8-23); Carbon Dioxide 24 mmol/L (22-30); Chloride 102 mmol/L (96-108); Globulin 3.3 gm/dL (2.2-3.7); Glomerular Filtration Rate 27; Glucose 102 mg/dL (70-105); Lactate Dehydrogenase 136 U/L (135-225); Phosphorous 3.1 mg/dL (2.5-4.5); Potassium 4.2 mmol/L (3.3-5.1); Sodium 136 mmol/L (133-145); Triglycerides 79 mg/dL (<150); Uric Acid 5.6 mg/dL (2.5-8.0)
[2024-06-24 07:49] LABS: Basophils # (Auto) 0.07 K/mcL (0.00-0.30); Basophils % (Auto) 0.3 % (0.0-2.0); Eosinophils # (Auto) 1.09 K/mcL (0.00-0.70); Hematocrit 25.3 % (40.1-51.0); Hemoglobin 7.6 g/dL (13.7-17.5); Lymphocytes # (Auto) 2.37 K/mcL (1.50-4.80); Lymphocytes % (Auto) 10.8 % (15.5-49.0); Mean Cell Volume 85.5 fL (80.0-100.0); Mean Platelet Volume 10.2 fL (8.8-12.5); Monocytes # (Auto) 1.31 K/mcL (0.10-0.90); Neutrophils % (Auto) 77.2 % (38.0-78.0); Platelet Count 253 K/mcL (140-440); RBC 2.96 M/mcL (4.63-6.08); Red Cell Distribution Width 16.6 % (11.5-14.5)
[2024-06-24] MEDS: VANCOMYCIN 1,000 MG in 0.9 % SODIUM CHLORIDE 250 ML IV SCH (10:43)
[2024-06-24] MEDS ORDERED: fentaNYL 100 MCG/2 ML VIAL ONE (15:08)
[2024-06-24] MEDS ORDERED: HYDROmorphone 0.5 MG/0.5 ML SYRINGE ONE (15:08)
[2024-06-24] MEDS ORDERED: SUGAMMADEX SODIUM 200 MG/2 ML VIAL IV ONE (15:09)
[2024-06-24] MEDS ORDERED: PROPOFOL 200 MG/20 ML VIAL IV ONE (15:09)
[2024-06-24] MEDS ORDERED: ROCURONIUM 10 MG/ML ML IV ONE ×2 (15:10→15:52)
[2024-06-24] MEDS ORDERED: DEXAMETHASONE 10 MG/ML VIAL ONE (15:11)
[2024-06-24] MEDS ORDERED: ONDANSETRON 4 MG/2 ML VIAL ONE (15:11)
[2024-06-24] MEDS ORDERED: DEXMEDETOMIDINE HCL 200 MCG/2 ML VIAL ONE (15:11)
[2024-06-24] MEDS ORDERED: GLYCOPYRROLATE 0.2 MG/ML VIAL IV ONE (15:11)
[2024-06-24] MEDS ORDERED: LIDOCAINE 2% PF 5 ML VIAL ONE (15:11)
[2024-06-24] MEDS: ceFAZolin 2 GM in DEXTROSE 5% IN WATER 50 ML IV SCH (15:20)
[2024-06-24] MEDS ORDERED: TRANEXAMIC ACID 1,000 MG/10 ML VIAL ONE (15:26)
[2024-06-24] MEDS ORDERED: ceFAZolin 1 GM VIAL ONE (15:27)
[2024-06-24] MEDS: ALBUMIN HUMAN 12.5 GM/50 ML VIAL IV ONE (15:40)
[2024-06-24] MEDS ORDERED: MAGNESIUM SULFATE 2 GM/50 ML BAG IV ONE (15:53)
[2024-06-24] MEDS: VANCOMYCIN 1 GM VIAL TOPICAL SCH (16:35)
[2024-06-24] MEDS ORDERED: fentaNYL 100 MCG/2 ML VIAL IV PRN (16:53)
[2024-06-24] MEDS ORDERED: IPRATROPIUM/ALBUTEROL 3 ML AMPUL.NEB NEB PRN (16:53)
[2024-06-24] MEDS ORDERED: ONDANSETRON 4 MG/2 ML VIAL IV PRN (16:53)
[2024-06-24] MEDS ORDERED: ePHEDrine 50 MG/5 ML SYRINGE (ANEST) IV ONE (17:07)
[2024-06-24] MEDS: LIDOCAINE 1% 10 ML VIAL SQ ONE (17:30)
[2024-06-24] MEDS: BUPIVACAINE 0.5% 50 ML VIAL IJ ONE (17:30)
[2024-06-24] MEDS: ACETAMINOPHEN 1,000 MG/100 ML BAG IV ONE (17:44)
[2024-06-24] MEDS: METHOCARBAMOL 1,000 MG/10 ML VIAL IV ONE (17:51)
[2024-06-24] MEDS: TRANEXAMIC ACID 1,000 MG/10 ML VIAL IV SCH (17:53)
[2024-06-24] MEDS: morphine 2 MG/ML VIAL IV PRN (18:01)
[2024-06-24] MEDS: LACTATED RINGERS 1,000 ML IV SCH ×2 (18:51→22:40)
[2024-06-24] MEDS: PIPERACILLIN SODIUM/TAZOBACTAM 3.375 GM in DEXTROSE 5% IN WATER 100 ML IV SCH (19:41)
[2024-06-24] MEDS ORDERED: 0.9 % SODIUM CHLORIDE 10 ML SYRINGE IV PRN (20:57)
[2024-06-24] MEDS: 0.9 % SODIUM CHLORIDE 10 ML SYRINGE IV SCH (22:40)
[2024-06-25] MEDS: 0.9 % SODIUM CHLORIDE 250 ML IV SCH (06:46)
[2024-06-25 07:11] LABS: ALT/SGPT 7 U/L (<40); AST/SGOT 26 U/L (<40); Albumin 3.1 gm/dL (3.2-5.2); Albumin/Globulin Ratio 0.8 (1.0-2.3); Alkaline Phosphatase 108 U/L (39-117); Bilirubin,Direct < 0.2 mg/dL (0-0.3); Bilirubin,Total 0.2 mg/dL (0.1-1.0); Blood Urea Nitrogen 26 mg/dL (8-23); Calcium 9.3 mg/dL (8.6-10.4); Carbon Dioxide 23 mmol/L (22-30); Chloride 102 mmol/L (96-108); Globulin 3.7 gm/dL (2.2-3.7); Glomerular Filtration Rate 30; Glucose 162 mg/dL (70-105); Lactate Dehydrogenase 206 U/L (135-225); Phosphorous 3.9 mg/dL (2.5-4.5); Potassium 4.3 mmol/L (3.3-5.1); Sodium 136 mmol/L (133-145); Triglycerides 83 mg/dL (<150); Uric Acid 5.8 mg/dL (2.5-8.0)
[2024-06-25 07:13] LABS: Basophils # (Auto) 0.01 K/mcL (0.00-0.30); Basophils % (Auto) 0 % (0.0-2.0); Eosinophils # (Auto) 0 K/mcL (0.00-0.70); Eosinophils % (Auto) 0 % (0.0-7.0); Hematocrit 26.2 % (40.1-51.0); Lymphocytes # (Auto) 1.72 K/mcL (1.50-4.80); Lymphocytes % (Auto) 5.6 % (15.5-49.0); Mean Cell Volume 87.6 fL (80.0-100.0); Mean Corpuscular HGB Conc 30.5 g/dL (31.0-36.0); Mean Platelet Volume 9.9 fL (8.8-12.5); Monocytes # (Auto) 0.63 K/mcL (0.10-0.90); Neutrophils % (Auto) 91.8 % (38.0-78.0); Platelet Count 272 K/mcL (140-440); RBC 2.99 M/mcL (4.63-6.08); Red Cell Distribution Width 16.4 % (11.5-14.5); WBC 30.9 K/mcL (4.5-11.0)
[2024-06-25 07:26] LABS: Vancomycin,Random 16.2 ug/mL
[2024-06-25] MEDS: PIPERACILLIN SODIUM/TAZOBACTAM 3.375 GM in DEXTROSE 5% IN WATER 50 ML IV ONE (09:56)
[2024-06-25] MEDS ORDERED: VANCOMYCIN 750 MG in 0.9 % SODIUM CHLORIDE 250 ML IV ONE (10:00)
[2024-06-25] MEDS: VANCOMYCIN 1,000 MG in 0.9 % SODIUM CHLORIDE 250 ML IV ONE (10:25)
[2024-06-25] MEDS: ACETAMINOPHEN 325 MG TABLET PO PRN (13:16)
[2024-06-25] MEDS: PIPERACILLIN SODIUM/TAZOBACTAM 3.375 GM in DEXTROSE 5% IN WATER 100 ML IV SCH (13:54)
[2024-06-25] MEDS: cefTRIAXone 2 GM in DEXTROSE 5% IN WATER 50 ML IV SCH (15:38)
[2024-06-25] MEDS: LEVOFLOXACIN 750 MG/150 ML BAG IV SCH (16:55)
[2024-06-25] MEDS: HYDROcodone/APAP 5/325MG TABLET PO PRN (20:55)
[2024-06-25] MEDS: SENNOSIDES 1 TABLET PO PRN (20:56)
[2024-06-26 06:48] LABS: Basophils # (Auto) 0.04 K/mcL (0.00-0.30); Basophils % (Auto) 0.2 % (0.0-2.0); Eosinophils # (Auto) 0.72 K/mcL (0.00-0.70); Eosinophils % (Auto) 4.3 % (0.0-7.0); Hematocrit 24.5 % (40.1-51.0); Hemoglobin 7.5 g/dL (13.7-17.5); Lymphocytes # (Auto) 2.39 K/mcL (1.50-4.80); Lymphocytes % (Auto) 14.2 % (15.5-49.0); Mean Cell Volume 86.9 fL (80.0-100.0); Mean Corpuscular HGB Conc 30.6 g/dL (31.0-36.0); Mean Platelet Volume 9.8 fL (8.8-12.5); Monocytes # (Auto) 1.09 K/mcL (0.10-0.90); Monocytes % (Auto) 6.5 % (1.0-12.0); Neutrophils % (Auto) 74.6 % (38.0-78.0); Platelet Count 275 K/mcL (140-440); RBC 2.82 M/mcL (4.63-6.08); Red Cell Distribution Width 16.7 % (11.5-14.5); WBC 16.9 K/mcL (4.5-11.0)
[2024-06-26 07:21] LABS: ALT/SGPT 7 U/L (<40); AST/SGOT 28 U/L (<40); Albumin 3.1 gm/dL (3.2-5.2); Albumin/Globulin Ratio 0.9 (1.0-2.3); Alkaline Phosphatase 93 U/L (39-117); Bilirubin,Direct < 0.2 mg/dL (0-0.3); Bilirubin,Total < 0.2 mg/dL (0.1-1.0); Blood Urea Nitrogen 25 mg/dL (8-23); Calcium 9.4 mg/dL (8.6-10.4); Carbon Dioxide 25 mmol/L (22-30); Chloride 103 mmol/L (96-108); Globulin 3.3 gm/dL (2.2-3.7); Glomerular Filtration Rate 32; Glucose 106 mg/dL (70-105); Lactate Dehydrogenase 180 U/L (135-225); Phosphorous 2.4 mg/dL (2.5-4.5); Sodium 139 mmol/L (133-145); Triglycerides 82 mg/dL (<150); Uric Acid 5.7 mg/dL (2.5-8.0)
[2024-06-26] MEDS: ONDANSETRON 4 MG/2 ML VIAL IV PRN (07:28)
[2024-06-26 07:48] LABS: Vancomycin,Random 21.6 ug/mL
[2024-06-26] MEDS: ASPIRIN 81 MG TAB.CHEW PO SCH (14:00)
[2024-06-26] MEDS: CLOPIDOGREL 75 MG TABLET PO SCH (14:00)
[2024-06-26] MEDS: DILTIAZEM 180 MG CAP.XL.24H PO SCH (14:00)
[2024-06-26] MEDS: hydrALAZINE 25 MG TABLET PO SCH (14:00)
[2024-06-26] MEDS: HEPARIN 5,000 UNIT/ML VIAL SQ SCH (20:51)
[2024-06-27 06:46] LABS: Basophils # (Auto) 0.05 K/mcL (0.00-0.30); Basophils % (Auto) 0.3 % (0.0-2.0); Eosinophils # (Auto) 0.97 K/mcL (0.00-0.70); Eosinophils % (Auto) 5.6 % (0.0-7.0); Hemoglobin 7.9 g/dL (13.7-17.5); Lymphocytes # (Auto) 2.46 K/mcL (1.50-4.80); Lymphocytes % (Auto) 14.3 % (15.5-49.0); Mean Cell Volume 86.4 fL (80.0-100.0); Mean Corpuscular HGB Conc 30.4 g/dL (31.0-36.0); Mean Platelet Volume 9.6 fL (8.8-12.5); Monocytes # (Auto) 1.34 K/mcL (0.10-0.90); Monocytes % (Auto) 7.8 % (1.0-12.0); Neutrophils % (Auto) 71.8 % (38.0-78.0); Platelet Count 284 K/mcL (140-440); RBC 3.01 M/mcL (4.63-6.08); Red Cell Distribution Width 16.9 % (11.5-14.5); WBC 17.2 K/mcL (4.5-11.0)
[2024-06-27 07:45] LABS: ALT/SGPT < 5 U/L (<40); AST/SGOT 30 U/L (<40); Albumin/Globulin Ratio 0.9 (1.0-2.3); Alkaline Phosphatase 91 U/L (39-117); Bilirubin,Direct < 0.2 mg/dL (0-0.3); Bilirubin,Total 0.2 mg/dL (0.1-1.0); Blood Urea Nitrogen 23 mg/dL (8-23); Calcium 9.3 mg/dL (8.6-10.4); Carbon Dioxide 24 mmol/L (22-30); Chloride 104 mmol/L (96-108); Globulin 3.3 gm/dL (2.2-3.7); Glomerular Filtration Rate 34; Glucose 105 mg/dL (70-105); Lactate Dehydrogenase 169 U/L (135-225); Phosphorous 2.2 mg/dL (2.5-4.5); Sodium 139 mmol/L (133-145); Triglycerides 93 mg/dL (<150)
[2024-06-27] MEDS ORDERED: DOCUSATE SODIUM 100 MG CAPSULE PO PRN (23:10)
[2024-06-28 09:20] LABS: Basophils # (Auto) 0.04 K/mcL (0.00-0.30); Basophils % (Auto) 0.2 % (0.0-2.0); Eosinophils # (Auto) 0.95 K/mcL (0.00-0.70); Eosinophils % (Auto) 4.9 % (0.0-7.0); Hematocrit 25.3 % (40.1-51.0); Hemoglobin 7.9 g/dL (13.7-17.5); Lymphocytes # (Auto) 3.39 K/mcL (1.50-4.80); Lymphocytes % (Auto) 17.3 % (15.5-49.0); Mean Cell Volume 85.5 fL (80.0-100.0); Mean Corpuscular HGB Conc 31.2 g/dL (31.0-36.0); Mean Platelet Volume 9.4 fL (8.8-12.5); Monocytes # (Auto) 1.29 K/mcL (0.10-0.90); Monocytes % (Auto) 6.6 % (1.0-12.0); Neutrophils % (Auto) 70.1 % (38.0-78.0); Platelet Count 267 K/mcL (140-440); RBC 2.96 M/mcL (4.63-6.08); WBC 19.6 K/mcL (4.5-11.0)
[2024-06-28 09:39] LABS: C-Reactive Protein 9.78 mg/dL (0.03-0.80)
[2024-06-28 09:39] LABS: Blood Urea Nitrogen 21 mg/dL (8-23); Carbon Dioxide 26 mmol/L (22-30); Chloride 102 mmol/L (96-108); Glomerular Filtration Rate 34; Glucose 112 mg/dL (70-105); Potassium 3.7 mmol/L (3.3-5.1); Sodium 137 mmol/L (133-145)
[2024-06-28 09:40] LABS: Phosphorous 2.5 mg/dL (2.5-4.5)
[2024-06-28 10:14] LABS: Blood Urea Nitrogen 21 mg/dL (8-23); Carbon Dioxide 26 mmol/L (22-30); Chloride 103 mmol/L (96-108); Glomerular Filtration Rate 34; Glucose 108 mg/dL (70-105); Potassium 3.7 mmol/L (3.3-5.1); Sodium 137 mmol/L (133-145)
[2024-06-28] MEDS: NEUTRA PHOS 1 PACKET PO SCH (11:19)
[2024-06-28] MEDS: TAMSULOSIN 0.4 MG CAPSULE PO SCH (21:10)
[2024-06-28] MEDS: LACTOBACILLUS 1 CAPSULE PO STA (21:11)
[2024-06-28] MEDS: LOPERAMIDE 2 MG CAPSULE PO ONE ×2 (21:13→21:14)
[2024-06-29] MEDS: LOPERAMIDE 2 MG CAPSULE PO PRN (01:15)
[2024-06-29 06:46] LABS: Basophils # (Auto) 0.05 K/mcL (0.00-0.30); Basophils % (Auto) 0.3 % (0.0-2.0); Eosinophils # (Auto) 1.16 K/mcL (0.00-0.70); Eosinophils % (Auto) 6.2 % (0.0-7.0); Hematocrit 25.3 % (40.1-51.0); Hemoglobin 7.8 g/dL (13.7-17.5); Lymphocytes # (Auto) 3.45 K/mcL (1.50-4.80); Lymphocytes % (Auto) 18.3 % (15.5-49.0); Mean Cell Volume 85.5 fL (80.0-100.0); Mean Corpuscular HGB Conc 30.8 g/dL (31.0-36.0); Mean Platelet Volume 9.5 fL (8.8-12.5); Monocytes # (Auto) 1.51 K/mcL (0.10-0.90); Neutrophils % (Auto) 66.9 % (38.0-78.0); Platelet Count 287 K/mcL (140-440); RBC 2.96 M/mcL (4.63-6.08); Red Cell Distribution Width 16.9 % (11.5-14.5); WBC 18.9 K/mcL (4.5-11.0)
[2024-06-29 07:23] LABS: ALT/SGPT 7 U/L (<40); AST/SGOT 22 U/L (<40); Albumin/Globulin Ratio 0.9 (1.0-2.3); Alkaline Phosphatase 94 U/L (39-117); Bilirubin,Direct < 0.2 mg/dL (0-0.3); Bilirubin,Total 0.2 mg/dL (0.1-1.0); Blood Urea Nitrogen 21 mg/dL (8-23); Calcium 8.9 mg/dL (8.6-10.4); Carbon Dioxide 26 mmol/L (22-30); Chloride 101 mmol/L (96-108); Globulin 3.3 gm/dL (2.2-3.7); Glomerular Filtration Rate 36; Glucose 116 mg/dL (70-105); Lactate Dehydrogenase 214 U/L (135-225); Phosphorous 2.8 mg/dL (2.5-4.5); Potassium 3.8 mmol/L (3.3-5.1); Sodium 136 mmol/L (133-145); Triglycerides 85 mg/dL (<150); Uric Acid 6.3 mg/dL (2.5-8.0)
[2024-06-29] MEDS: LACTOBACILLUS 1 CAPSULE PO SCH (09:10)
[2024-06-29 12:28] LABS: Anisocytosis 1+ (None Seen); Band Neutrophils % 3 % (0-10); Eosinophils % (Manual) 4 % (0-7); Hypochromasia FEW (None Seen); Lymphocytes % 13 % (15-49); Microcytosis FEW (None Seen); Monocytes % (Manual) 15 % (1-12); Ovalocytes FEW (None Seen); Platelet Estimate NORMAL (Normal); RBC Fragments RARE (None Seen); RBC Morphology ABNORMAL (Normal); Segmented Neutrophils % 65 % (38-78)
== END 2024-06-29 12:15 | DRG 853 ==
LOC: ED 18:15 → ICU 06-22 11:05 → MEDSUR 06-27 17:00
PROVIDERS: ADMIT Internal Medicine; ATTEND Internal Medicine